=== PATIENT | female | born 1960 | race African-American/Black ===

== ENCOUNTER → 2017-03-29 | Outpatient (CLI) | payer OTHER | LOC: MC.RAD 07:00 | DX: Z12.31 Encounter for screening mammogram for malignant neoplasm of breast (principal) ==

== ENCOUNTER 2017-12-18 03:46 | Emergency (ER) | payer OTHER ==
[~2017-12-18] VITALS: Ht 157.5 cm; Wt 100.0 kg
[2017-12-18 03:48] VITALS: TEMP 97.8
[2017-12-18] MEDS ORDERED: TAZTIA180 PO (04:31)
[2017-12-18 04:35] LABS: COLLECTION METHOD CLEAN CATCH
[2017-12-18 04:37] LABS: BASO % 0.5 % (0.0-2.0); EOS # 0.1 (0.0-0.7); EOS % 0.9 % (0-4.0); GRAN # 5.3 (1.4-6.5); GRAN % 69.1 % (42.2-75.2); HEMATOCRIT 39.3 % (37.0-47.0); HEMOGLOBIN 12.8 g/dl (12.5-16.0); LYMPH # 1.6 (1.2-3.4); LYMPH % 21.4 % (20.0-51.0); MEAN CELL VOLUME 87 fl (80.0-100.0); MEAN CORPUSCULAR HEMOGLOBIN 28 pg (27.0-31.0); MEAN CORPUSCULAR HGB CONC 33 g/dl (33.0-37.0); MEAN PLATELET VOLUME 9.7 fl (7.4-10.4); MONO # 0.6 (0.1-0.6); MONO % 7.8 % (1.7-9.3); PLATELET COUNT 284 K/mm3 (130-400); RED BLOOD COUNT 4.53 M/mm3 (4.10-5.30); REDCELL DISTRIBUTION WIDTH-CV 13.4 % (11.5-14.5)
[2017-12-18 05:46] LABS: ALBUMIN 3.6 gm/dL (3.5-5.0); BILIRUBIN,TOTAL 0.4 mg/dL (0.0-1.0); C-REACTIVE PROTEIN 0.8 mg/dL (0.0-0.9); CREATININE, serum 0.93 mg/dL (0.52-1.25)
[2017-12-18 06:38] LABS: AMORPHOUS CRYSTAL Present /uL; MUCOUS Present /lpf; PH 6 (5-8); SQUAMOUS EPITHELIAL 0-2 /hpf; URINE APPEARANCE Cloudy; URINE BACTERIA Rare /hpf; URINE BILIRUBIN Negative (NEGATIVE); URINE BLOOD Negative (NEGATIVE); URINE COLOR Yellow; URINE GLUCOSE Negative (NEGATIVE); URINE KETONE Negative (NEGATIVE); URINE LEUKOCYTE ESTERASE Negative (NEGATIVE); URINE NITRATE Negative (NEGATIVE); URINE PROTEIN(semi-quant) Negative (NEGATIVE); URINE RBC None Seen /hpf; URINE UROBILINOGEN Negative (NEGATIVE)
[2017-12-18] MEDS ORDERED: ZOFRAN ODT4 MG PO (07:16)
[2017-12-18] MEDS ORDERED: CEFTIN500 MG PO (07:16)
[2017-12-18] MEDS ORDERED: PERCOCET 325 MG1 TA2 PO (07:16)
[2017-12-18 07:37] VITALS: BP 118/69; PULSE 84
== END 2017-12-18 07:46 | disposition home or self-care (01) ==
LOC: COL.ER 03:46
PROVIDERS: Emergency Medicine
DX: N20.1 Calculus of ureter (principal); N23 Unspecified renal colic; I10 Essential (primary) hypertension; Z90.710 Acquired absence of both cervix and uterus
CPT/HCPCS: J1170; J1885; J7030; Q9967

== ENCOUNTER → 2018-08-09 | Outpatient (CLI) | payer OTHER ==
[~2018-08-09] MED LIST: CEFTIN500 MG PO; PERCOCET 325 MG1 TA2 PO; TAZTIA180 PO; ZOFRAN ODT4 MG PO
== END ==
LOC: MC.RAD 14:47
DX: Z12.31 Encounter for screening mammogram for malignant neoplasm of breast (principal)

== ENCOUNTER 2019-04-23 06:03 | Day surgery (SDC) | payer BC ==
[~2019-04-23] VITALS: Ht 157.5 cm; Wt 100.0 kg
[2019-04-23 06:33] VITALS: BP 147/92; PULSE 92; TEMP 98.7
--- NOTE | 2019-04-23 06:43 | NUR ---
TO RM AT 0612- CALL LIGHT IN REACH AT BEDSIDE.
[2019-04-23 07:40] VITALS: BP 125/73; PULSE 72; TEMP 97.7
--- NOTE | 2019-04-23 07:45 | NUR ---
Patient arrives to [facility] via cart, accompanied by [facility] RN Ani. Bedside report received. She is drowsy, but oriented. She ambulates to the chair in the room with standby assist. Monitoring is applied - VSS and WNL on room air. She denies any pain or nausea. Her chair is reclined and lights are dimmed so she can rest. She refuses food or drink at this time - will offer again later. Call light in reach. Spouse at the bedside.
--- NOTE | 2019-04-23 07:50 | NUR ---
Dr. Murrieta at the bedside at this time.
[2019-04-23 07:55] VITALS: BP 122/69; PULSE 67
--- NOTE | 2019-04-23 07:55 | NUR ---
Patient is awake, alert, sitting up in chair, talking with spouse. She denies pain or nausea. She is offered and receives sprite and toast. Her is provided a muffin and juice. They are eating together and chatting.
[2019-04-23 08:10] VITALS: BP 127/79; PULSE 75
--- NOTE | 2019-04-23 08:10 | NUR ---
Tolerating PO well. Denies pain, nausea, or need.
--- NOTE | 2019-04-23 08:20 | NUR ---
Patient has met discharge criteria. Discharge instructions are discussed with her and her spouse. They deny questions and verbalize understanding. PIV removed with catheter intact and hemostasis achieved. She changes to her clothing indepedently. She is escorted to the exit via wheelchair and discharged to home with ride in private vehicle at 0820.
== END 2019-04-23 08:20 | disposition home or self-care (01) ==
LOC: SDCO 06:03
DX: Z12.11 Encounter for screening for malignant neoplasm of colon (principal); Z80.0 Family history of malignant neoplasm of digestive organs; K57.30 Diverticulosis of large intestine without perforation or abscess without bleeding; K64.0 First degree hemorrhoids; Z90.710 Acquired absence of both cervix and uterus; I10 Essential (primary) hypertension; M19.90 Unspecified osteoarthritis, unspecified site
CPT/HCPCS: J2704; J3010; J7120

== ENCOUNTER → 2019-08-27 | Outpatient (CLI) | payer BC | LOC: MC.RAD 07:21 | DX: Z12.31 Encounter for screening mammogram for malignant neoplasm of breast (principal) ==

== ENCOUNTER → 2023-12-09 | Outpatient (CLI) | payer BC | LOC: MC.RAD 07:01 | DX: Z12.31 Encounter for screening mammogram for malignant neoplasm of breast (principal) ==